=== PATIENT | female | born 1955 | race Caucasian/White ===

== ENCOUNTER 2016-10-26 06:44 | Day surgery (SDC) | payer OTHER ==
[~2016-10-26 06:44] MED LIST: RINGER'S SOLUTION,LACTATED 1,000 ML IV PRN; ceFAZolin SODIUM 1 GM VIAL IV PRN; oxyCODONE HCL/ACETAMINOPHEN 1 TAB TABLET PO PRN
[2016-10-26] MEDS ORDERED: RINGER'S SOLUTION,LACTATED 1,000 ML IV ONE ×2 (07:18→08:50)
[2016-10-26] MEDS ORDERED: BUPIVACAINE HCL 50 ML VIAL IJ ONE ×2 (08:15)
[2016-10-26 14:00] VITALS: BP 129/76
== END 2016-10-26 06:45 | disposition home or self-care (01) ==
LOC: AMB 06:44
PROVIDERS: ATTEND Orthopaedic Surgery
PROC: 0QBM0ZZ Excision of Left Tarsal, Open Approach (ICD-10-PCS; principal; 2016-10-26 08:00)
DX: M77.32 Calcaneal spur, left foot (principal); M76.62 Achilles tendinitis, left leg; I10 Essential (primary) hypertension; F41.9 Anxiety disorder, unspecified; F32.9 Major depressive disorder, single episode, unspecified; Z87.891 Personal history of nicotine dependence; Z68.39 Body mass index [BMI] 39.0-39.9, adult

== ENCOUNTER 2016-10-29 02:38 | Inpatient (IN) | payer OTHER ==
[2016-10-29] MEDS ORDERED: ONDANSETRON HCL/PF 2 MG/ML VIAL IV ONE ×2 (02:51→04:21)
[2016-10-29] MEDS ORDERED: NORMAL SALINE 1,000 ML IV ONE ×2 (02:51→02:59)
[2016-10-29] MEDS ORDERED: ONDANSETRON HCL/PF 2 MG/ML VIAL ONE ×2 (02:52→04:24)
--- NOTE | 2016-10-29 03:10 | ERNOTE ---
Medical Problem HPI - General Chief Complaint: Nausea/Vomiting Time Seen by Provider: 10/29/16 02:54 Source: patient Exam Limitations: no limitations - Immun/Allergies/Home Medications Immunizations: IMMUNIZATION HX Immunizations Up to Date Yes Allergies/Adverse Reactions: Allergies codeine Allergy (Mild, Verified 10/29/16 02:47) Itching mold Allergy (Mild, Verified 10/29/16 02:47) Other Rhinitis Home Medications: HOME MEDICATIONS Atenolol [Tenormin] 25 mg PO DAILY 10/16/16 [Last Taken Unknown] Calcium Carbonate [Calcium] 1,000 mg PO DAILY 10/16/16 [Last Taken Unknown] FLUoxetine HCL [Prozac] 40 mg PO DAILY 10/16/16 [Last Taken Unknown] Glucosamine HCl 1,000 mg PO DAILY 10/16/16 [Last Taken Unknown] LORazepam [Ativan] 1 mg PO Q12H PRN 10/16/16 [Last Taken Unknown] Levothyroxine Sodium [Synthroid] 50 mcg PO DAILY 10/16/16 [Last Taken Unknown] Multivitamin [Multivitamins] 1 each PO DAILY 10/16/16 [Last Taken Unknown] [place]-3 Fatty Acids/Fish Oil [Fish Oil 1,000 mg Capsule] 2 each PO DAILY [Last Taken Unknown] oxyCODONE HCL/ACETAMINOPHEN [Oxycodone-Acetaminophen 5-325] 1 each PO Q4H PRN # 60 tablet 10/26/16 [Last Taken Unknown] - History of Present History Narrative: here for nausea and vomiting all day. Pt had surgery two days ago on her left ankle and has been taking hydrocodone Review of Systems - Review of Systems Constitutional: Present: no symptoms reported EYE: Present: no symptoms reported ENT: Present: no symptoms reported Respiratory: Present: no symptoms reported Cardiology: Present: no symptoms reported Gastrointestinal/Abdominal: Present: nausea, vomiting, constipation Genitourinary: Present: no symptoms reported Musculoskeletal: Present: no symptoms reported - Patient's Past Medical History Patient History - Medical: No pertinent hx, Anxiety, Depression Patient History - Cardiac/Respiratory: Hypertension Patient History - Cancer: Cervical Patient History - Surgical Procedures: , Hysterectomy Patient History - Other: None - Family History Mother Family History - Medical: Family History - Cardiac/Respiratory: Hypertension, Myocardial Infarction Family History - Cancer: No pertinent family hx Brother Family History - Medical: No pertinent hx Family History - Cardiac/Respiratory: Hypertension Family History - Cancer: No pertinent family hx - Social History Living Situations: home Abuse History: No History of abuse Psych History: Hx of Anxiety, Hx of Depression Smoking Status: Never smoker Alcohol Use: rarely Drug Use: none - Immunizations Immunizations Up to Date: Yes Physical Exam - Physical Exam General Appearance: Present: wd/wn, alert, no apparent distress Head Exam: Present: normal inspection, no evidence of injury Ears, Nose, Throat: Present: other - sry mouth Respiratory: Present: no respiratory distress, normal breath sounds, no accessory muscle use, chest nontender, lungs clear Cardiovascular/Chest: Present: regular rate, rhythm, no murmur, normal peripheral pulses Gastrointestinal/Abdominal: Present: normal bowel sounds, nondistended, other - slight diffuse tenderness without any masses there is no rebound tenderness. Extremity Exam: Present: normal inspection, normal range of motion - dressing is applied and cast to the left lower extremity it was not removed. Neurological Exam: Present: alert, oriented, normal mood/affect, no motor/ sensory deficits ED Progress - Results and Orders Patient's Lab Results:: I have reviewed the patient's lab results. - Vital Signs Patient's Vital Signs:: I have reviewed the patient's vital signs. Vital Signs: Vital Signs 10/29/16 10/29/16 02:43 03:02 Temperature 36.3 C L Pulse Rate 97 77 Respiratory 20 20 Rate Blood Pressure 169/89 159/76 O2 Sat by Pulse 98 99 Oximetry - EKG EKG read: Interp. by me - X-Ray X-Ray #1 X-Ray: abdomen - CT/Ultrasound CT/Ultrasound Narrative: CT of abd was read by radiologist - Progress/Reassessment Chief Complaint: Nausea/Vomiting Plan - Plan Plan: Lactic acid is 3.7. A CT of the abdomen and pelvis reveals colitis possibly and the transverse colon but no other pathology. At this time the hospitalist was consulted in regard to admitting the patient. Patient has continuously been nauseated and dry heaving and vomiting in the room. She is received Zofran and Phenergan and she did achieve some relief from that. She's also had Dilaudid for abdominal pain. Departure - Departure Clinical Impression: Colitis Disposition: [facility] Condition: Fair Referrals: Beverley Escalona MD [Primary Care Provider] -
[2016-10-29 03:13] LABS: Hematocrit 41.8 % (37.0-47.0); Hemoglobin 14.8 gm/dL (12.5-16.0); Mean Cell Volume 87.4 fl (78-100); Mean Corpuscular Hgb Conc 35.4 g/dl (32-36); Mean Platelet Volume 10.1 fl (6.0-9.5); Neutrophil % 89.2 % (42-75.0); Platelet Count 253 K/mm3 (150-450); Red Blood Count 4.78 M/mm3 (4.2-5.4); Red Cell Distribution Width 12.5 % (11.5-14.0); White Blood Count 15.7 K/mm3 (4.0-10.5)
[2016-10-29 03:26] LABS: Albumin * 3.6 gm/dl (3.4-5.0); Anion Gap 18.5 mmol/L (6.8-13.8); BUN/Creatinine Ratio 12.2 (9.0-21.6); Bilirubin, Total 0.8 mg/dL (0.0-1.1); Ca. Corrected For Albumin 8.9 mg/dL (8.4-10.2); Calcium * 8.9 mg/dL (7.9-10.9); Carbon Dioxide 23.3 mmol/L (24-32.6); Potassium 3.8 mmol/L (3.4-4.6); Total Protein 7.2 gm/dL (6.2-8.2)
[2016-10-29] MEDS ORDERED: PROMETHAZINE HCL 25 MG in DEXTROSE 5 % IN WATER 50 ML IV ONE ×2 (03:35)
[2016-10-29] MEDS ORDERED: DIATRIZOATE MEGLUMINE, SODIUM 30 ML BTL PO ONE (03:38)
[2016-10-29] MEDS ORDERED: DIATRIZOATE MEGLUMINE, SODIUM 30 ML BTL ONE (03:40)
[2016-10-29] MEDS ORDERED: HYDROmorphone HCL 1 MG/ML DISP.SYRIN IV ONE (04:11)
[2016-10-29] MEDS ORDERED: FAMOTIDINE 10 MG/ML VIAL IV ONE ×2 (04:12→04:16)
[2016-10-29] MEDS ORDERED: HYDROmorphone HCL 1 MG/ML DISP.SYRIN ONE (04:16)
[2016-10-29] MEDS ORDERED: LEVOFLOXACIN/D5W 500 MG/100 ML BAG IV SCH (04:30)
[2016-10-29 04:38] LABS: CK Total * 62 U/L (0-259); Troponin I Less than 0.017 ng/ml (0.00-0.10)
[2016-10-29 04:45] LABS: Urine Bilirubin Negative (NEGATIVE); Urine Blood Negative /ul (NEGATIVE); Urine Ketone 50 mg/dL (NEGATIVE); Urine Nitrite Negative (NEGATIVE); Urine Protein Negative (NEGATIVE); Urine Specific Gravity 1.015 SP.GR. (1.005-1.010); Urine Urobilinogen Normal (NORMAL); Urine pH 8.5 pH (5.0-7.0)
[2016-10-29 04:54] LABS: Urine Appearance Clear; Urine Bacteria None Seen; Urine Color Yellow; Urine RBC None Seen /hpf (0-5); Urine WBC None Seen /hpf (0-5)
[2016-10-29] MEDS ORDERED: ACETAMINOPHEN 650 MG SUPP.RECT RC ONE (05:02)
[2016-10-29] MEDS ORDERED: ACETAMINOPHEN 650 MG SUPP.RECT ONE (05:06)
[2016-10-29] MEDS: NORMAL SALINE IV PRN ×2 (06:13→07:17)
[2016-10-29] MEDS ORDERED: ONDANSETRON HCL/PF 2 MG/ML VIAL IV PRN (09:53)
[2016-10-29] MEDS ORDERED: HYDROmorphone HCL 1 MG/ML DISP.SYRIN IV PRN ×2 (09:58)
[2016-10-29] MEDS ORDERED: MORPHINE SULFATE 4 MG/ML SYRG IV PRN (10:02)
[2016-10-29] MEDS ORDERED: LIDOCAINE HCL 20 ML UDC PO ONE (10:14)
[2016-10-29] MEDS ORDERED: MAG HYDROX/ALUMINUM HYD/SIMETH 30 ML UDC PO ONE (10:14)
--- NOTE | 2016-10-29 10:46 | HP ---
Chief Complaint - Chief Complaint Date of Service: 10/29/16 Time of Service: 10:41 Chief Complaint: N/V, abdominal pain History of Present Illness: The patient is a 61 year old female who presents with N/V and abdominal pain that started yesterday around 10 or 11am. The patient denies any similar prior episodes. She had elective left heel surgery ([place] deformity excision) on by Dr. Alonzo. She was doing well postoperatively until yesterday, . The patient admits that she was constipated following surgery and took a laxative and then started having loose stools shortly after the N/V and abdominal pain started. Abdominal pain is diffuse but most severe areas of pain are in the upper quadrants. She denies any black, tarry or bloody stools. The patient denies ever having a previous colonoscopy. - Patient's Past Medical History Patient History - Medical: Anxiety, Depression Patient History - Cardiac/Respiratory: Hypertension Patient History - Cancer: Cervical Patient History - Surgical Procedures: , Hysterectomy Patient History - Other: None - Family History Mother Family History - Medical: Family History - Cardiac/Respiratory: Hypertension, TIA Family History - Cancer: No pertinent family hx Brother Family History - Medical: No pertinent hx Family History - Cardiac/Respiratory: Hypertension Family History - Cancer: No pertinent family hx Father Family History - Medical: , No pertinent hx Family History - Cardiac/Respiratory: No pertinent hx Family History - Cancer: Prostate - Social History Living Situations: home Abuse History: No History of abuse Psych History: Hx of Anxiety, Hx of Depression Smoking Status: Former smoker Have you smoked in the past 12 months: No Do you dip or chew tobacco: No Alcohol Use: rarely Drug Use: none - Immunizations Immunizations Up to Date: Yes Review Of Systems (GEN) - Review of Systems Generalized/Overall Review: Present: Weakness, Chills, Fever, Fatigue EENTM: Present: No Symptoms Reported Respiratory: Present: No Symptoms Reported Cardiac: Present: No Symptoms Reported Abdominal: Present: Nausea, Vomiting, Abdominal Pain, Constipation, Diarrhea. Absent: Hematemesis, Melena, Bright blood from rectum Genitourinary: Present: No Symptoms Reported Musculoskeletal: Present: Joint Pain - left ankle pain s/p surgery Neurological: Present: No Symptoms Reported Skin: Present: No Symptoms Reported Endocrine: Present: No Symptoms Reported Misc: All systems neg except as marked Allergies/Adverse Reactions: Allergies Allergy/AdvReac Type Severity Reaction Status Date / Time codeine Allergy Mild Itching Verified 10/29/16 06:56 mold Allergy Mild Other Verified 10/29/16 06:56 Home Medications: HOME MEDICATIONS Atenolol [Tenormin] 25 mg PO DAILY 10/16/16 [Last Taken Unknown] Calcium Carbonate [Calcium] 1,000 mg PO DAILY 10/16/16 [Last Taken Unknown] FLUoxetine HCL [Prozac] 40 mg PO DAILY 10/16/16 [Last Taken Unknown] LORazepam [Ativan] 1 mg PO Q12H PRN 10/16/16 [Last Taken Unknown] Levothyroxine Sodium [Synthroid] 50 mcg PO DAILY 10/16/16 [Last Taken Unknown] Multivitamin [Multivitamins] 1 each PO DAILY 10/16/16 [Last Taken Unknown] [place]-3 Fatty Acids/Fish Oil [Fish Oil 1,000 mg Capsule] 2 each PO DAILY [Last Taken Unknown] oxyCODONE HCL/ACETAMINOPHEN [Oxycodone-Acetaminophen 5-325] 1 each PO Q4H PRN # 60 tablet 10/26/16 [Last Taken Unknown] Magnesium Hydroxide [Milk Of Magnesia] 30 ml PO DAILY PRN 10/29/16 [Last Taken 10/28/16 17:00] Aspirin [Aspirin Chewable] 81 mg PO DAILY #30 tab.chew 10/31/16 [Last Taken Unknown] Atorvastatin Calcium [Lipitor] 40 mg PO HS #30 tablet 10/31/16 [Last Taken Unknown] Ciprofloxacin HCl [Cipro] 500 mg PO BID #20 tab 10/31/16 [Last Taken Unknown] Omeprazole 40 mg PO DAILY #30 capsule. 10/31/16 [Last Taken Unknown] Ondansetron HCl [Zofran] 4 mg PO Q6H PRN #15 tablet 10/31/16 [Last Taken Unknown ] metroNIDAZOLE [Flagyl] 500 mg PO Q8H #30 tablet 10/31/16 [Last Taken Unknown] Exam - Exam Vital Signs: Vital Signs - Last Taken Temp 37.4 C 10/29/16 06:13 Pulse 88 10/29/16 06:34 Resp 18 10/29/16 06:34 BP 147/64 10/29/16 06:34 Pulse Ox 96 10/29/16 06:34 Constitutional: Present: Alert, Oriented x3, Cooperative, Acute distress - Uncomfortable secondary to abdominal pain, Obese ENT Exam: Present: hearing grossly normal, moist mucous membranes Eye Exam: bilateral eye: normal inspection, EOMI Respiratory: Present: lungs clear, normal breath sounds, no respiratory distress , no accessory muscle use Cardiovascular/Chest: Present: regular rate, rhythm Abdomen: Present: obese, tender - Diffuse tenderness to palpation especially along the right upper quadrant left upper quadrant and epigastric area, guarding - Voluntary guarding, rebound tenderness, hypoactive. Absent: rigidity , CVA tenderness Extremity: Present: other - Left leg and postoperative boot Skin Exam: Present: normal color, warm/dry Neurologic: Present: alert, normal mood/affect, oriented x 3 Appearance: Present: appropriate appearance, appropriate insight, neat, no memory impairment Eye contact: Present: cooperative, good eye contact, normal speech Thoughts: Present: normal thought pattern, no apparent hallucination Diagnostic Studies: Abnormal Lab Results 10/29/16 Range/Units 06:20 Lactic Acid, Venous 2.2 H* (0.4-1.9) mmol/L Laboratory Results WBC 15.7 K/mm3 (4.0-10.5) H 10/29/16 03:05 RBC 4.78 M/mm3 (4.2-5.4) 10/29/16 03:05 Hgb 14.8 gm/dL (12.5-16.0) 10/29/16 03:05 Hct 41.8 % (37.0-47.0) 10/29/16 03:05 MCV 87.4 fl (78-100) 10/29/16 03:05 MCH 31.0 pg (27-31) 10/29/16 03:05 MCHC 35.4 g/dl (32-36) 10/29/16 03:05 RDW 12.5 % (11.5-14.0) 10/29/16 03:05 Plt Count 253 K/mm3 (150-450) 10/29/16 03:05 MPV 10.1 fl (6.0-9.5) H 10/29/16 03:05 Immature Gran % (Auto) 0.40 % (0.001-0.429) 10/29/16 03:05 Immature Gran # (Auto) 0.07 K/mm3 (0.000-0.0310) H 10/29/16 03:05 Neutrophils % 89.2 % (42-75.0) H 10/29/16 03:05 Lymphocytes % 5.8 % (20-51) L 10/29/16 03:05 Monocytes % 4.4 % (0.0-9) 10/29/16 03:05 Eosinophils % 0.0 % (0.0-3.0) 10/29/16 03:05 Basophils % 0.2 % (0.0-1.0) 10/29/16 03:05 Nucleated RBC % 0.0 k/mm3 (0-1) 10/29/16 03:05 Neutrophils # 14.0 K/mm3 (1.3-6.0) H 10/29/16 03:05 Lymphocytes # 0.9 k/mm3 (1.5-3.5) L 10/29/16 03:05 Monocytes # 0.7 k/mm3 (0.0-1.0) 10/29/16 03:05 Eosinophils # 0.0 k/mm3 (0.0-0.7) 10/29/16 03:05 Absolute Basophils 0.0 k/mm3 (0.0-0.1) 10/29/16 03:05 Sodium 141 mmol/L (132-142) 10/29/16 03:05 Plasma Sodium 142 mmol/L (130-142) 10/29/16 03:05 Potassium 3.8 mmol/L (3.4-4.6) 10/29/16 03:05 Chloride 103 mmol/L (97-106) 10/29/16 03:05 Carbon Dioxide 23.3 mmol/L (24-32.6) L 10/29/16 03:05 Anion Gap 18.5 mmol/L (6.8-13.8) H 10/29/16 03:05 BUN 15 mg/dL (3-23) 10/29/16 03:05 Creatinine 1.23 mg/dL (0.4-1.4) 10/29/16 03:05 Est GFR (Non-Af Amer) 47 mL/min (60-130) L D 10/29/16 03:05 BUN/Creatinine Ratio 12.2 (9.0-21.6) 10/29/16 03:05 Random Glucose 140 mg/dL (70-110) H 10/29/16 03:05 Lactic Acid, Venous 2.2 mmol/L (0.4-1.9) H* 10/29/16 06:20 Calcium 8.9 mg/dL (7.9-10.9) 10/29/16 03:05 Calcium Adj for Albumin 8.9 mg/dL (8.4-10.2) 10/29/16 03:05 Total Bilirubin 0.8 mg/dL (0.0-1.1) 10/29/16 03:05 AST 16 U/L (0-48) 10/29/16 03:05 ALT 22 U/L (19-67) 10/29/16 03:05 Alkaline Phosphatase 61 U/L (50-170) 10/29/16 03:05 Creatine Kinase 62 U/L (0-259) 10/29/16 03:05 Troponin I Less than 0.017 ng/ml (0.00-0.10) 10/29/16 03:05 C-Reactive Prot, Quant 6.4 mg/dL (0.0-0.9) H 10/29/16 03:05 Total Protein 7.2 gm/dL (6.2-8.2) 10/29/16 03:05 Albumin 3.6 gm/dl (3.4-5.0) 10/29/16 03:05 Amylase 24 U/L (25-115) L 10/29/16 03:05 Lipase 51 U/L (73-393) L 10/29/16 03:05 Urine Color Yellow 10/29/16 04:30 Urine Appearance Clear 10/29/16 04:30 Urine pH 8.5 pH (5.0-7.0) 10/29/16 04:30 Ur Specific [place] 1.015 SP.GR. (1.005-1.010) 10/29/16 04:30 Urine Protein Negative mg/dL (NEGATIVE) 10/29/16 04:30 Urine Glucose (UA) Negative mg/dL (NEGATIVE) 10/29/16 04:30 Urine Ketones 50 mg/dL (NEGATIVE) 10/29/16 04:30 Urine Blood Negative /ul (NEGATIVE) 10/29/16 04:30 Urine Nitrate Negative (NEGATIVE) 10/29/16 04:30 Urine Bilirubin Negative mg/dl (NEGATIVE) 10/29/16 04:30 Urine Urobilinogen Normal EU/dl (NORMAL) 10/29/16 04:30 Ur Leukocyte Esterase Negative /ul (NEGATIVE) 10/29/16 04:30 Urine RBC None seen /hpf (0-5) 10/29/16 04:30 Urine WBC None seen /hpf (0-5) 10/29/16 04:30 Ur Epithelial Cells None seen /hpf (0-5) 10/29/16 04:30 Urine Bacteria None seen (NONE) 10/29/16 04:30 Urine Culture Comments No culture indicated 10/29/16 04:30 Assessment/Plan - Narrative Narrative: Patient admitted for colitis of the transverse and descending colon. Unfortunately, there was no enteric contrast administered prior to the CT scan of the abdomen and pelvis completed in the emergency department. Colitis is likely infectious vs. less likely diverticular in origin (given no comment of diverticular disease noted on CT). However, given her recent foot surgery + atherosclerosis noted on CT scan + no post-operative VTE prophylaxis, ischemic colitis is definitely in the differential. Change antibiotics to IV Cipro and Flagyl with plans to switch to oral medications once patient is tolerating PO intake. Continue nausea medications and pain medications as needed. I discussed with the patient that she should have a colonoscopy in approximately 6 -8 weeks after this acute episode of colitis has resolved. Patient started on aspirin and statin. VTE prophylaxis ordered. Continue to follow clinical course and I would expect patient will need to be in the hospital for at least 2 -3 days. - Assessment/Plan (1) Colitis Problem: Acute
[2016-10-29] MEDS: CIPROFLOXACIN IN 5 % DEXTROSE 400 MG/200 ML BAG IV SCH ×2 (10:52→21:07)
[2016-10-29] MEDS: NORMAL SALINE 1,000 ML IV PRN ×2 (10:52→15:38)
[2016-10-29] MEDS: MORPHINE SULFATE 2 MG/ML DISP.SYRIN IV PRN ×5 (10:52→21:13)
[2016-10-29] MEDS: PANTOPRAZOLE SODIUM 40 MG TABLET.EC PO SCH ×2 (10:52→21:07)
[2016-10-29] MEDS: metroNIDAZOLE/SODIUM CHLORIDE 500 MG/100 ML BAG IV SCH ×2 (12:07→19:16)
[2016-10-29] MEDS ORDERED: LORazepam 1 MG TABLET PO PRN (12:59)
[2016-10-29] MEDS ORDERED: oxyCODONE HCL/ACETAMINOPHEN 1 TAB TABLET PO PRN (12:59)
[2016-10-29] MEDS: MULTIVITAMINS 1 CAP CAPSULE PO SCH (14:06)
[2016-10-29] MEDS: ASPIRIN 81 MG TAB.CHEW PO SCH (14:06)
[2016-10-29] MEDS: LEVOTHYROXINE SODIUM 50 MCG TABLET PO SCH (14:06)
[2016-10-29] MEDS: FLUoxetine HCL 20 MG CAPSULE PO SCH (14:06)
[2016-10-29] MEDS: ENOXAPARIN SODIUM 40 MG/0.4 ML SYRG SC SCH (14:06)
[2016-10-29] MEDS: ATENOLOL 25 MG TABLET PO SCH (14:07)
[2016-10-30] MEDS: NORMAL SALINE 1,000 ML IV PRN ×2 (01:28→14:02)
[2016-10-30] MEDS: MORPHINE SULFATE 2 MG/ML DISP.SYRIN IV PRN ×4 (01:31→13:04)
[2016-10-30] MEDS: metroNIDAZOLE/SODIUM CHLORIDE 500 MG/100 ML BAG IV SCH ×3 (02:41→19:36)
[2016-10-30 06:15] LABS: Hematocrit 34.3 % (37.0-47.0); Hemoglobin 11.4 gm/dL (12.5-16.0); Mean Corpuscular Hemoglobin 30.6 pg (27-31); Mean Corpuscular Hgb Conc 33.2 g/dl (32-36); Mean Platelet Volume 10.4 fl (6.0-9.5); Neutrophil # 7.7 K/mm3 (1.3-6.0); Neutrophil % 70.6 % (42-75.0); Platelet Count 188 K/mm3 (150-450); Red Blood Count 3.73 M/mm3 (4.2-5.4); Red Cell Distribution Width 13.2 % (11.5-14.0); White Blood Count 10.9 K/mm3 (4.0-10.5)
[2016-10-30 06:27] LABS: Anion Gap 10.7 mmol/L (6.8-13.8); BUN/Creatinine Ratio 8.7 (9.0-21.6); CRP 11.3 mg/dL (0.0-0.9); Calcium * 7.9 mg/dL (7.9-10.9); Carbon Dioxide 25.1 mmol/L (24-32.6); Estimated Creat Clear 57.3; Potassium 3.8 mmol/L (3.4-4.6)
[2016-10-30] MEDS: LEVOTHYROXINE SODIUM 50 MCG TABLET PO SCH (07:09)
[2016-10-30] MEDS: PANTOPRAZOLE SODIUM 40 MG TABLET.EC PO SCH ×2 (07:09→20:58)
[2016-10-30] MEDS: ASPIRIN 81 MG TAB.CHEW PO SCH (09:14)
[2016-10-30] MEDS: MULTIVITAMINS 1 CAP CAPSULE PO SCH (09:14)
[2016-10-30] MEDS: FLUoxetine HCL 20 MG CAPSULE PO SCH (09:15)
[2016-10-30] MEDS: CIPROFLOXACIN IN 5 % DEXTROSE 400 MG/200 ML BAG IV SCH ×2 (09:15→21:00)
[2016-10-30] MEDS: ATENOLOL 25 MG TABLET PO SCH (09:18)
[2016-10-30] MEDS: ENOXAPARIN SODIUM 40 MG/0.4 ML SYRG SC SCH (13:04)
--- NOTE | 2016-10-30 13:27 | PN ---
Subjective - Date and Time Seen Date: 10/30/16 Time: 09:00 Subjective Narrative: Patient seen and examined at bedside. No acute issues overnight. Patient continues to have nausea without vomiting. She continues to have abdominal pain which he states is mildly improved from yesterday. Objective - Review of Systems Generalized/Overall Review: Reports: Weakness, Fatigue EENTM: Reports: No Symptoms Reported Respiratory: Reports: No Symptoms Reported Cardiac: Reports: No Symptoms Reported Abdominal: Reports: Nausea, Abdominal Pain. Denies: Vomiting Genitourinary Symptoms: Reports: No Symptoms Reported Musculoskeletal Complaints: Reports: Joint Pain - Postoperative left foot and ankle pain Neurological: Reports: No Symptoms Reported Skin: Reports: No Symptoms Reported Endocrine: Reports: No Symptoms Reported Misc: All systems neg except as marked - Vitals Vitals: Last Vital Signs Temp 36.5 C 10/30/16 13:13 Pulse 76 10/30/16 13:13 Resp 20 10/30/16 13:13 BP 103/52 10/30/16 13:13 Pulse Ox 97 10/30/16 13:13 - Exam Constitutional: Present: Alert, Oriented x3, Cooperative, Acute distress - Appears uncomfortable secondary to abdominal pain, Obese ENT Exam: Present: hearing grossly normal, moist mucous membranes Respiratory: Present: lungs clear, normal breath sounds, no respiratory distress , no accessory muscle use Cardiovascular/Chest: Present: regular rate, rhythm Abdomen: Present: tender - Diffuse tenderness to palpation with most severe TTP located in the upper quadrants, guarding - Voluntary, rebound tenderness. Absent: rigidity, CVA tenderness Extremity: Present: other - Left leg in postoperative boot Skin Exam: Present: normal color, warm/dry Neurologic: Present: alert, normal mood/affect, oriented x 3 Appearance: Present: appropriate appearance, appropriate insight, neat, no memory impairment Eye contact: Present: cooperative, good eye contact, normal speech Thoughts: Present: normal thought pattern, no apparent hallucination Assessment/Plan Plan Narrative: Patient admitted for colitis of the transverse and descending colon. Unfortunately, there was no enteric contrast administered prior to the CT scan of the abdomen and pelvis completed in the emergency department. Colitis is likely infectious vs. less likely diverticular in origin (given no comment of diverticular disease noted on CT). However, given her recent foot surgery + atherosclerosis noted on CT scan + no post-operative VTE prophylaxis, ischemic colitis is definitely in the differential. Continue IV Cipro and Flagyl with plans to switch to oral medications once patient is tolerating PO intake. Continue nausea medications and pain medications as needed. I discussed with the patient that she should have a colonoscopy in approximately 6-8 weeks after this acute episode of colitis has resolved. Patient started on aspirin and statin. VTE prophylaxis in place. Continue to follow clinical course and I would expect patient will need to be in the hospital for at least another 1-2 days. - Problems/Diagnosis (1) Colitis Problem: Acute (2) Atherosclerosis of abdominal aorta Problem: Chronic
[2016-10-30] MEDS: CALCIUM CARBONATE 500 MG TAB.CHEW PO SCH (14:03)
[2016-10-30] MEDS: ACETAMINOPHEN 325 MG TABLET PO PRN (19:36)
[2016-10-30] MEDS ORDERED: hydrOXYzine PAMOATE 25 MG CAPSULE ONE (20:55)
[2016-10-30] MEDS ORDERED: hydrOXYzine PAMOATE 50 MG CAPSULE PO PRN (21:00)
[2016-10-30] MEDS ORDERED: ATORVASTATIN CALCIUM 40 MG TABLET PO SCH (21:00)
[2016-10-31] MEDS: NORMAL SALINE 1,000 ML IV PRN ×2 (00:06→09:33)
[2016-10-31] MEDS: ACETAMINOPHEN 325 MG TABLET PO PRN (03:25)
[2016-10-31] MEDS: metroNIDAZOLE/SODIUM CHLORIDE 500 MG/100 ML BAG IV SCH ×2 (03:27→10:42)
[2016-10-31 06:09] LABS: Hematocrit 33.8 % (37.0-47.0); Hemoglobin 11.4 gm/dL (12.5-16.0); Mean Cell Volume 90.9 fl (78-100); Mean Corpuscular Hemoglobin 30.6 pg (27-31); Mean Corpuscular Hgb Conc 33.7 g/dl (32-36); Mean Platelet Volume 9.8 fl (6.0-9.5); Neutrophil # 6.2 K/mm3 (1.3-6.0); Neutrophil % 71.6 % (42-75.0); Platelet Count 173 K/mm3 (150-450); Red Blood Count 3.72 M/mm3 (4.2-5.4); Red Cell Distribution Width 12.7 % (11.5-14.0); White Blood Count 8.6 K/mm3 (4.0-10.5)
[2016-10-31 06:24] LABS: Albumin * 2.5 gm/dl (3.4-5.0); Anion Gap 12.4 mmol/L (6.8-13.8); BUN/Creatinine Ratio 7.3 (9.0-21.6); Bilirubin Direct 0.1 mg/dL (0.0-0.3); Bilirubin, Total 0.5 mg/dL (0.0-1.1); Bilirubin,Indirect 0.4 mg/dL (0.1-0.7); Carbon Dioxide 24.4 mmol/L (24-32.6); Chol/HDL Risk Ratio 3.3 mg/dL (3.3-4.4); Estimated Creat Clear 62.1; Potassium 3.8 mmol/L (3.4-4.6); Total Protein 5.7 gm/dL (6.2-8.2)
[2016-10-31] MEDS: PANTOPRAZOLE SODIUM 40 MG TABLET.EC PO SCH (06:59)
[2016-10-31] MEDS: LEVOTHYROXINE SODIUM 50 MCG TABLET PO SCH (07:00)
[2016-10-31 08:47] VITALS: BP 156/86
[2016-10-31] MEDS: ASPIRIN 81 MG TAB.CHEW PO SCH (09:34)
[2016-10-31] MEDS: FLUoxetine HCL 20 MG CAPSULE PO SCH (09:35)
[2016-10-31] MEDS: CALCIUM CARBONATE 500 MG TAB.CHEW PO SCH (09:35)
[2016-10-31] MEDS: MULTIVITAMINS 1 CAP CAPSULE PO SCH (09:35)
[2016-10-31] MEDS: CIPROFLOXACIN IN 5 % DEXTROSE 400 MG/200 ML BAG IV SCH (09:35)
[2016-10-31] MEDS: ATENOLOL 25 MG TABLET PO SCH (09:35)
--- NOTE | 2016-10-31 10:31 | DS ---
(1) Colitis Problem: Acute (2) Atherosclerosis of abdominal aorta Problem: Chronic (3) Leukocytosis Problem: Resolved (4) Elevated lactic acid level Problem: Resolved Description of Stay: ADMISSION DATE: 10/29/2016 DISCHARGE DATE: 10/31/2016 ADMISSION HPI: The patient is a 61 year old female who presents with N/V and abdominal pain that started yesterday around 10 or 11am. The patient denies any similar prior episodes. She had elective left heel surgery ([place] deformity excision) on by Dr. Alonzo. She was doing well postoperatively until yesterday, . The patient admits that she was constipated following surgery and took a laxative and then started having loose stools shortly after the N/V and abdominal pain started. Abdominal pain is diffuse but most severe areas of pain are in the upper quadrants. She denies any black, tarry or bloody stools. The patient denies ever having a previous colonoscopy. HOSPITAL COURSE: Patient admitted for colitis of the transverse and descending colon. Unfortunately, there was no enteric contrast administered prior to the CT scan of the abdomen and pelvis completed in the emergency department. Colitis is likely infectious vs. less likely diverticular in origin (given no comment of diverticular disease noted on CT). However, given her recent foot surgery + atherosclerosis noted on CT scan + no post-operative VTE prophylaxis + location of colitis, ischemic colitis is definitely in the differential. Patient treated with aggressive IV fluid hydration as well as IV Cipro and Flagyl during her admission and was transitioned to oral antibiotics when she was tolerating PO intake and she was discharged home with an additional 10 day course of oral Cipro and Flagyl. She was also given a prescription for Zofran to use as needed for N/V. I discussed with the patient that she should have a colonoscopy in approximately 6-8 weeks after this acute episode of colitis has resolved. She is scheduled to see one of our general surgeons, Dr. Kraus on at 9 AM to discuss getting scheduled for a colonoscopy. During the patients admission, she was also started on a daily baby aspirin and statin due to her CT showing diffuse atherosclerosis of the abdominal aorta and its major branches. The patient was discharged home in stable condition and instructed to follow-up with her PCP, Dr. Escalona, within 1-2 weeks. FOLLOW-UP APPOINTMENTS: -PCP, Dr. Escalona, on 11/12/2016 at 10:00 AM -General Surgeon, Dr. Jimenez, on 12/25/2016 at 9:00 AM NEW OR CHANGED MEDICATIONS: -Ciprofloxacin 500 mg PO BID X 10 days -Metronidazole 500mg PO Q8H X 10 days -Aspirin 81mg PO daily -Atorvastatin 40 mg PO QHS -Omeprazole 40mg PO daily -Zofran 4mg PO Q6H PRN N/V DISCONTINUED MEDICATIONS: None RADIOLOGY REPORTS: Abdominal x-ray flat and upright on 10/29/2016 showed: Diffuse scattered air- filled loops of large and small bowel with some air-fluid levels. However, no dilation of the large or small bowel to suggest obstruction. No free air or free fluid. Degenerative change of the spine and hips. IMPRESSION: No acute intra-abdominal processes identified radiographically. Single view chest x-ray on 10/29/2016 showed: No acute cardiopulmonary abnormality identified. CT of the abdomen and pelvis with IV contrast but with no enteric contrast on showed: The lung bases show hyperinflation chronic scarring but otherwise are clear. Mild fatty infiltration of the liver. Small subcentimeter cyst in the right hepatic lobe. The liver is otherwise normal without solid mass or ductal dilation. The gallbladder is normal. The spleen, pancreas and adrenal glands are normal. The kidneys demonstrate normal contrast enhancement and excretion and are without solid mass, nephrolithiasis or hydronephrosis. The patient might stomach and small bowel loops are grossly normal. No mesenteric or retroperitoneal lymphadenopathy. The appendix is not clearly identified. However no inflammatory change in the right lower quadrant. Small punctate focus of air seen within the bladder. Correlate clinically for recent Castillo catheter placement. Bladder is well distended and otherwise normal. There is diffuse thickening and inflammation involving the mid to distal transverse colon and the descending colon. Findings consistent with colitis. There is mild free pelvic fluid secondary to the above described inflammation of the colon. No inguinal or pelvic lymphadenopathy. There is diffuse atherosclerosis of the abdominal aorta and major branches. No aneurysmal dilation. There is extensive degenerative change of the spine, SI joints and bilateral hips. IMPRESSION: Nonspecific colitis of the transverse colon and descending colon. Procedures Performed: none Results and Findings: Laboratory Tests 10/29/16 10/29/16 10/29/16 03:05 03:05 03:05 WBC 15.7 H Lactic Acid, Venous Total Bilirubin Direct Bilirubin Indirect Bilirubin AST ALT Alkaline Phosphatase Creatine Kinase Troponin I C-Reactive Prot, Quant 6.4 H Total Protein Albumin Triglycerides Cholesterol LDL Cholesterol VLDL Cholesterol HDL Cholesterol Cholesterol/HDL Ratio Amylase 24 L Lipase 51 L 10/29/16 10/29/16 10/29/16 03:05 03:45 06:20 WBC Lactic Acid, Venous 3.7 H* 2.2 H* Total Bilirubin Direct Bilirubin Indirect Bilirubin AST ALT Alkaline Phosphatase Creatine Kinase 62 Troponin I Less than 0.017 C-Reactive Prot, Quant Total Protein Albumin Triglycerides Cholesterol LDL Cholesterol VLDL Cholesterol HDL Cholesterol Cholesterol/HDL Ratio Amylase Lipase 10/30/16 10/30/16 10/31/16 05:30 05:30 06:00 WBC 10.9 H D 8.6 D Lactic Acid, Venous Total Bilirubin Direct Bilirubin Indirect Bilirubin AST ALT Alkaline Phosphatase Creatine Kinase Troponin I C-Reactive Prot, Quant 11.3 H Total Protein Albumin Triglycerides Cholesterol LDL Cholesterol VLDL Cholesterol HDL Cholesterol Cholesterol/HDL Ratio Amylase Lipase 10/31/16 10/31/16 06:00 06:00 WBC Lactic Acid, Venous 0.6 Total Bilirubin 0.5 Direct Bilirubin 0.1 Indirect Bilirubin 0.4 AST 12 ALT 21 Alkaline Phosphatase 48 L Creatine Kinase Troponin I C-Reactive Prot, Quant Total Protein 5.7 L Albumin 2.5 L Triglycerides 91 Cholesterol 159 LDL Cholesterol 94 VLDL Cholesterol 18 HDL Cholesterol 47 Cholesterol/HDL Ratio 3.3 Amylase Lipase Discharge Disposition: Home self care Disposition: Home self-care Condition: Stable Discharge Activity: Activity as tolerated - Any restrictions as previously discussed with ortho Discharge Diet: Low fat/chol - Advance diet to a heart healthy diet as tolerated Referrals: Beverley Escalona MD [Primary Care Provider] - Problem Oriented Discharge Instructions to Patient/Family: Colitis Additional Patient Instructions (free text): -Follow-up with Dr. Escalona on 11/12/16, at 10:00 AM -Schedule patient to see General Surgery, Dr. Jimenez on 12/25/16, at 9: 00 AM Prescriptions (Any new or edited meds): Aspirin [Aspirin Chewable] 81 mg PO DAILY #30 tab.chew Atorvastatin Calcium [Lipitor] 40 mg PO HS #30 tablet Ciprofloxacin HCl [Cipro] 500 mg PO BID #20 tab metroNIDAZOLE [Flagyl] 500 mg PO Q8H #30 tablet Omeprazole 40 mg PO DAILY #30 capsule. Ondansetron HCl [Zofran] 4 mg PO Q6H PRN #15 tablet PRN Reason: Nausea Complete Home Medications List: Complete Home Medication List: Atenolol [Tenormin] 25 mg PO DAILY 10/16/16 Calcium Carbonate [Calcium] 1,000 mg PO DAILY 10/16/16 FLUoxetine HCL [Prozac] 40 mg PO DAILY 10/16/16 LORazepam [Ativan] 1 mg PO Q12H PRN 10/16/16 Levothyroxine Sodium [Synthroid] 50 mcg PO DAILY 10/16/16 Multivitamin [Multivitamins] 1 each PO DAILY 10/16/16 [place]-3 Fatty Acids/Fish Oil [Fish Oil 1,000 mg Capsule] 2 each PO DAILY oxyCODONE HCL/ACETAMINOPHEN [Oxycodone-Acetaminophen 5-325] 1 each PO Q4H PRN # 60 tablet 10/26/16 Magnesium Hydroxide [Milk Of Magnesia] 30 ml PO DAILY PRN 10/29/16 Aspirin [Aspirin Chewable] 81 mg PO DAILY #30 tab.chew 10/31/16 Atorvastatin Calcium [Lipitor] 40 mg PO HS #30 tablet 10/31/16 Ciprofloxacin HCl [Cipro] 500 mg PO BID #20 tab 10/31/16 Omeprazole 40 mg PO DAILY #30 capsule. 10/31/16 Ondansetron HCl [Zofran] 4 mg PO Q6H PRN #15 tablet 10/31/16 metroNIDAZOLE [Flagyl] 500 mg PO Q8H #30 tablet 10/31/16
[2016-10-31] MEDS: ENOXAPARIN SODIUM 40 MG/0.4 ML SYRG SC SCH (14:09)
== END 2016-10-31 12:30 | disposition home or self-care (01) | DRG 392 ==
LOC: ER 02:38 → MS 06:01 → OBSVTOIN 10-30 11:52
PROVIDERS: ADMIT Nurse Practitioner; ATTEND Internal Medicine
DX: K52.9 Noninfective gastroenteritis and colitis, unspecified (principal); I70.0 Atherosclerosis of aorta; I10 Essential (primary) hypertension; Z85.41 Personal history of malignant neoplasm of cervix uteri; Z87.891 Personal history of nicotine dependence
CPT/HCPCS: 36415; 71010; 74020; 74177; 80048; 80053; 80061; 80076; 81001; 82150; 82550; 83605; 83690; 84484; 85025; 86140; 87040; 93005; 96365; 96367; 96375; 99283; G0378; J2405